=== PATIENT | male | born 1985 | race Caucasian/White ===

== ENCOUNTER 2018-07-04 18:02 | Emergency (ER) | payer SELFPAY ==
[2018-07-04 19:38] LABS: Protime INR 0.97
[2018-07-04 20:07] LABS: ALT/SGPT 82 U/L (12-78); AST/SGOT 31 U/L (15-37); Albumin 3.9 g/dL (3.4-5.0); Alkaline Phosphatase 74 U/L (45-117); BUN Blood Urea Nitrogen 6 mg/dL (7-18); Bicarbonate 24 mmol/L (21-32); Bilirubin Direct < 0.1 mg/dL (0-0.2); Bilirubin Total 0.3 mg/dL (0.2-1.0); Glucose Level 94 mg/dL (74-106); Potassium 3.8 mmol/L (3.5-5.1); Protein, Total 7.7 g/dL (6.4-8.2); Sodium Level 138 mmol/L (136-145)
[2018-07-04 20:22] LABS: Absolute Monocytes 0.5 K/uL (0.1-1.3); Absolute Neutrophil 4.2 K/uL (1.8-8.0); Basophils % 1.2 % (0-1.3); Eosinophils % 2.6 % (0-4.4); Hematocrit 49.7 % (39.6-49.0); Lymphocytes % 37.2 % (15.3-44.8); MCH 32.2 pg (27.0-35.0); MCV 92.3 fL (80-100); MPV 8.9 fL (7.6-11.3); Monocytes % 6.7 % (3.3-12.3); RBC Red Blood Cell Count 5.39 M/uL (4.33-5.43)
[2018-07-04 21:07] LABS: Barbiturates NEGATIVE (NEGATIVE); Benzodiazepines NEGATIVE (NEGATIVE); Cocaine NEGATIVE (NEGATIVE); METHAMPHETAM NEGATIVE (NEGATIVE); Methadone NEGATIVE (NEGATIVE); Opiates NEGATIVE (NEGATIVE); Phencyclidine NEGATIVE (NEGATIVE); THC Cannibis NEGATIVE (NEGATIVE)
[2018-07-04] MEDS ORDERED: NA CHLORIDE 0.9% 1,000 ML ONE ×2 (21:32→22:16)
--- NOTE | 2018-07-05 00:14 | ER ---
Nurse's Notes [facility] Name: Naima Catalan Age: 32 yrs Sex: Male : 1985 Arrival Date: 07/04/2018 Time: 18:06 Bed 27 Private MD: Diagnosis: Adjustment disorder with depressed mood Presentation: 07/04 18:12 Presenting complaint: Patient states: from his of 9 years a couple days iw ago, last night she sent him a picture of someone else's penis, pt started drinking this morning when he got off work at 8 am, has had a total of 17 beers, sent a text to his friend who is a police stenographer that stated "I feel like I wanna shoot myself". Pt denies previous hx of suicidal ideation, states he just feels very depressed, especially after drinking, denies any attempt at suicide. Transition of care: patient was not received from another setting of care. Onset of symptoms was July 04, 2018. Risk Assessment: Do you want to hurt yourself or someone else? Patient reports no desire to harm self or others. Initial Sepsis Screen: Does the patient meet any 2 criteria? No. Patient's initial sepsis screen is negative. Does the patient have a suspected source of infection? No. Patient's initial sepsis screen is negative. Care prior to arrival: None. 18:12 Method Of Arrival: EMS: [facility] 18:12 Acuity: LEN 2 iw Historical: - Allergies: 18:19 NKA; iw - Home Meds: 18:19 None [Active]; iw - PMHx: 18:19 None; iw - PSHx: 18:19 fusion C4-C5; iw - Immunization history:: Adult Immunizations up to date. - Social history:: Smoking status: Patient uses tobacco products, smokes one pack cigarettes per day. Patient uses alcohol, on a daily basis. claims drinking about a 6 pack/day. - Ebola Screening: : Patient negative for fever greater than or equal to 101.5 degrees Fahrenheit, and additional compatible Ebola Virus Disease symptoms Patient denies exposure to infectious person Patient denies travel to an Ebola-affected area in the 21 days before illness onset No symptoms or risks identified at this time. Screenin:47 Abuse screen: Denies threats or abuse. Nutritional screening: No deficits noted. tl3 Tuberculosis screening: No symptoms or risk factors identified. Fall Risk None identified. Assessment: 18:20 General: Appears comfortable, well groomed, well developed, well nourished, Behavior is tl3 calm, cooperative, appropriate for age, Smells of alcohol. Pain: Denies pain. Neuro: Level of Consciousness is awake, alert, obeys commands, Oriented to person, place, time, situation, Appropriate for age. Neuro: Reports depression, marital problems. Cardiovascular: Patient's skin is warm and dry. Respiratory: Airway is patent Respiratory effort is even, unlabored, Respiratory pattern is regular, symmetrical, Breath sounds are clear bilaterally. GI: No signs and/or symptoms were reported involving the gastrointestinal system. : No signs and/or symptoms were reported regarding the genitourinary system. EENT: No signs and/or symptoms were reported regarding the EENT system. Derm: No signs and/or symptoms reported regarding the dermatologic system. Musculoskeletal: No signs and/or symptoms reported regarding the musculoskeletal system. 22:13 Reassessment: No changes from previously documented assessment. Patient and/or family tl3 updated on plan of care and expected duration. Pain level reassessed. Patient is alert, oriented x 3, equal unlabored respirations, skin warm/dry/pink. pt tolerating fluids well. 07/05 00:17 Reassessment: Patient appears in no apparent distress at this time. No changes from tl3 previously documented assessment. Patient and/or family updated on plan of care and expected duration. Pain level reassessed. Patient is alert, oriented x 3, equal unlabored respirations, skin warm/dry/pink. [facility] has evaluated patient and provided him with resources for outpatient care. Psych: 07/04 18:20 Subjective: Patient's mood is sad, Delusions are denied, Hallucinations are denied. iw Objective: Patient is cooperative, Speech is normal, Affect is appropriate. 07/05 00:15 Interventions: Urine collected and sent for urine drug test. Suicide Risk Assessment: tl3 Sad Person Scale: Sex of patient: Male: Score 1 point. Age of patient: Score 1 point if patient 15-34. Depression: Score 1 point if signs of depression are present. Previous Attempt: Score 0 point if patient has not previously attempted suicide. Substance Abuse: Score 1 point if patient abuses alcohol or drugs. Rational Thinking: Score 0 point if patient has rational thinking. Social Support: Score 0 if social support is present/available. Organized Plan: Score 0 if patient did not have an organized plan in place. Relationship: Score 1 point if patient is , , , or for a single male TOTAL POINTS: If total points are 3-4, proposed clinical action is close follow-up/consider hospitalization. Safety Checks: Patient uses. Commitment:. Vital Signs: 07/04 18:19 BP 157 / 115; Pulse 96; Resp 16 S; Temp 98.2; Pulse Ox 99% on R/A; Weight 108.86 kg; iw Height 6 ft. (182.88 cm); Pain 0/10; 20:47 BP 149 / 110; Pulse 92; Resp 18; Pulse Ox 99% on R/A; tl3 23:14 BP 143 / 98; Pulse 86; Resp 18; Pulse Ox 94% on R/A; tl3 07/05 00:25 BP 143 / 98; Pulse 85; Resp 18; Pulse Ox 95% on R/A; tl3 07/04 18:19 Body Mass Index 32.55 (108.86 kg, 182.88 cm) iw ED Course: 07/04 18:06 Patient arrived in ED. tl3 18:11 Catalina Terrell, LETICIA is Primary Nurse. tl3 18:12 Alba Yoo FNP-C is PHCP. snw 18:12 Adrian Edmonds MD is Attending Physician. snw 18:18 Triage completed. iw 18:19 Arm band placed on. iw 20:47 Patient has correct armband on for positive identification. Bed in low position. Call tl3 light in reach. Side rails up X 1. 20:47 No provider procedures requiring assistance completed. Initial lab(s) drawn, by me, tl3 sent to lab. Urine collected: clean catch specimen, clear. 23:02 Lab(s) recollected, by me, sent to lab. tl3 23:15 Spoke with [facility] and arranged for a screener to come assess patient once second cc etoh level is resulted. 07/05 00:26 IV discontinued, intact, bleeding controlled, No redness/swelling at site. Pressure tl3 dressing applied. Administered Medications: 07/04 21:30 Drug: NS 0.9% 1000 ml Route: IV; Rate: 1 bolus; Site: right antecubital; Delivery: tl3 Primary tubing; 07/05 00:02 Follow up: IV Status: Completed infusion; IV Intake: 1000ml tl3 07/04 22:12 Drug: NS 0.9% 1000 ml Route: IV; Rate: 1 bolus; Site: right antecubital; mg2 07/05 00:02 Follow up: IV Status: Completed infusion; IV Intake: 1000ml tl3 Intake: 00:02 IV: 1000ml; Total: 1000ml. tl3 00:02 IV: 1000ml; Total: 2000ml. tl3 Outcome: 00:13 Discharge ordered by MD. restrepo 00:26 Discharged to home ambulatory. tl3 00:26 Condition: improved 00:26 Discharge instructions given to patient, Instructed on discharge instructions, follow up and referral plans. Demonstrated understanding of instructions, follow-up care. 00:27 Patient left the ED. tl3 Signatures: Alba Yoo, WIND TURBINE MACHINIST-C WIND TURBINE MACHINIST-Csnw Nola Naidu, LETICIA RN Jossie Gramajo Tammy, RN RN tl3 Avelino Romero RN RN mg2
--- NOTE | 2018-07-05 00:14 | EDPHYS ---
Physician Documentation [facility] Name: Naima Catalan Age: 32 yrs Sex: Male : 1985 Arrival Date: 07/04/2018 Time: 18:06 Bed 27 Private MD: ED Physician Adrian Edmonds HPI: 07/04 19:21 This 32 yrs old Male presents to ER via EMS with complaints of Suicidal snw Ideation. 19:21 The patient presents to the emergency department with depression, over a relationship, snw pt denies SI, HI. States in frustration he text his friend (a commissioned police officer) and stated that he just felt like shooting himself in the head. Onset: The symptoms/episode began/occurred gradually, and became worse today. Past psychiatric history: Prior diagnosis: depression, Psychiatric medications include: none, Primary psychiatric physician: the patient does not have a primary psychiatric physician, the patient has not had a prior suicide gesture, the patient does not have a previous inpatient psychiatric history, the patient's last psychiatric treatment was none. Associated signs and symptoms: Pertinent positives; + intoxication. Severity of symptoms: At their worst the symptoms were moderate in the emergency department the symptoms have improved moderately. The patient has not experienced similar symptoms in the past. It is unknown whether or not the patient has recently seen a physician. Pt has 4 children with significant other. Pt is having relationship problem with her. States he is usually on a roller coaster with ups and downs but is very down at this time. Speaking with G-mother who lives in [place] and is very supportive when I entered his room. Pt denies suicidal/homicidal ideation. No treatment or counseling for depression in the past. Historical: - Allergies: 18:19 NKA; iw - Home Meds: 18:19 None [Active]; iw - PMHx: 18:19 None; iw - PSHx: 18:19 fusion C4-C5; iw - Immunization history:: Adult Immunizations up to date. - Social history:: Smoking status: Patient uses tobacco products, smokes one pack cigarettes per day. Patient uses alcohol, on a daily basis. claims drinking about a 6 pack/day. - Ebola Screening: : Patient negative for fever greater than or equal to 101.5 degrees Fahrenheit, and additional compatible Ebola Virus Disease symptoms Patient denies exposure to infectious person Patient denies travel to an Ebola-affected area in the 21 days before illness onset No symptoms or risks identified at this time. ROS: 19:25 Constitutional: Negative for fever, chills, and weight loss, Eyes: Negative for injury, snw pain, redness, and discharge, ENT: Negative for injury, pain, and discharge, Neck: Negative for injury, pain, and swelling, Cardiovascular: Negative for chest pain, palpitations, and edema, Respiratory: Negative for shortness of breath, cough, wheezing, and pleuritic chest pain, Abdomen/GI: Negative for abdominal pain, nausea, vomiting, diarrhea, and constipation, Back: Negative for injury and pain, : Negative for injury, bleeding, discharge, and swelling, MS/Extremity: Negative for injury and deformity, Skin: Negative for injury, rash, and discoloration, Neuro: Negative for headache, weakness, numbness, tingling, and seizure. 19:25 Psych: Positive for depression, intoxication. Exam: 19:25 Constitutional: This is a well developed, well nourished patient who is awake, alert, snw and in no acute distress. +ETOH Head/Face: Normocephalic, atraumatic. Eyes: Pupils equal round and reactive to light, extra-ocular motions intact. Lids and lashes normal. Conjunctiva and sclera are non-icteric and not injected. Cornea within normal limits. Periorbital areas with no swelling, redness, or edema. ENT: Nares patent. No nasal discharge, no septal abnormalities noted. Tympanic membranes are normal and external auditory canals are clear. Oropharynx with no redness, swelling, or masses, exudates, or evidence of obstruction, uvula midline. Mucous membranes moist. Neck: Trachea midline, no thyromegaly or masses palpated, and no cervical lymphadenopathy. Supple, full range of motion without nuchal rigidity, or vertebral point tenderness. No Meningismus. Chest/axilla: Normal chest wall appearance and motion. Nontender with no deformity. No lesions are appreciated. Cardiovascular: Regular rate and rhythm with a normal S1 and S2. No gallops, murmurs, or rubs. Normal PMI, no JVD. No pulse deficits. Respiratory: Lungs have equal breath sounds bilaterally, clear to auscultation and percussion. No rales, rhonchi or wheezes noted. No increased work of breathing, no retractions or nasal flaring. Abdomen/GI: Soft, non-tender, with normal bowel sounds. No distension or tympany. No guarding or rebound. No evidence of tenderness throughout. Back: No spinal tenderness. No costovertebral tenderness. Full range of motion. Skin: Warm, dry with normal turgor. Normal color with no rashes, no lesions, and no evidence of cellulitis. MS/ Extremity: Pulses equal, no cyanosis. Neurovascular intact. Full, normal range of motion. Neuro: Awake and alert, GCS 15, oriented to person, place, time, and situation. Cranial nerves II-XII grossly intact. Motor strength 5/5 in all extremities. Sensory grossly intact. Cerebellar exam normal. Normal gait. 19:25 Psych: Behavior/mood is depressed, Affect is calm, Oriented to person, place, time, denies, Judgement / Insight is normal. Memory is normal. Vital Signs: 18:19 BP 157 / 115; Pulse 96; Resp 16 S; Temp 98.2; Pulse Ox 99% on R/A; Weight 108.86 kg; iw Height 6 ft. (182.88 cm); Pain 0/10; 20:47 BP 149 / 110; Pulse 92; Resp 18; Pulse Ox 99% on R/A; tl3 23:14 BP 143 / 98; Pulse 86; Resp 18; Pulse Ox 94% on R/A; tl3 07/05 00:25 BP 143 / 98; Pulse 85; Resp 18; Pulse Ox 95% on R/A; tl3 07/04 18:19 Body Mass Index 32.55 (108.86 kg, 182.88 cm) iw MDM: 07/04 18:16 Patient medically screened. snw 23:58 Data reviewed: vital signs, nurses notes. Data interpreted: Pulse oximetry: on room air snw is 94 %. Interpretation: acceptable. Counseling: I had a detailed discussion with the patient and/or guardian regarding: the historical points, exam findings, and any diagnostic results supporting the discharge/admit diagnosis, the presence of at least one elevated blood pressure reading (>120/80) during this emergency department visit, lab results. Other consultation: [facility] here for evaluation. 07/04 18:12 Order name: Acetaminophen; Complete Time: 20:35 snw 07/04 18:12 Order name: Basic Metabolic Panel; Complete Time: 20:35 [facility] 07/04 18:12 Order name: CBC with Diff; Complete Time: 20:35 [facility] 07/04 18:12 Order name: ETOH Level; Complete Time: 20:13 [facility] 07/04 18:12 Order name: Hepatic Function; Complete Time: 20:35 w 07/04 18:12 Order name: PT-INR; Complete Time: 20:13 [facility] 07/04 18:12 Order name: Ptt, Activated; Complete Time: 20:13 [facility] 07/04 18:12 Order name: Salicylate; Complete Time: 20:13 w 07/04 18:12 Order name: Urine Drug Screen; Complete Time: 21:20 [facility] 07/04 18:12 Order name: EKG; Complete Time: 18:13 [facility] 07/04 22:13 Order name: ETOH Level: after the second bolus; Complete Time: 23:55 [facility] 07/04 18:12 Order name: EKG - Nurse/Tech; Complete Time: 21:44 [facility] 07/04 18:12 Order name: IV Saline Lock; Complete Time: 21:44 [facility] 07/04 18:12 Order name: Labs collected and sent; Complete Time: 20:19 [facility] 07/04 18:12 Order name: Urine Dipstick-Ancillary (obtain specimen); Complete Time: 21:44 [facility] 07/04 20:36 Order name: consult Order-[facility] Administered Medications: 21:30 Drug: NS 0.9% 1000 ml Route: IV; Rate: 1 bolus; Site: right antecubital; Delivery: tl3 Primary tubing; 07/05 00:02 Follow up: IV Status: Completed infusion; IV Intake: 1000ml tl3 07/04 22:12 Drug: NS 0.9% 1000 ml Route: IV; Rate: 1 bolus; Site: right antecubital; mg2 07/05 00:02 Follow up: IV Status: Completed infusion; IV Intake: 1000ml tl3 Disposition: 12:19 Co-signature as Attending Physician, Adrian Edmonds MD. Disposition: 07/05/18 00:13 Discharged to Home. Impression: Adjustment disorder with depressed mood. - Condition is Stable. - Discharge Instructions: Adjustment Disorder, Adult, Complicated Grieving. - Medication Reconciliation Form, Thank You Letter, Antibiotic Education, Prescription Opioid Use form. - Follow up: Emergency Department; When: As needed; Reason: Worsening of condition. Follow up: Private Physician; When: 5 - 6 days; Reason: Recheck today's complaints, Continuance of care, Re-evaluation by your physician. - Notes: [facility] , Signatures: Dispatcher [employer] [facility] Alba Yoo, PULP AND PAPER TESTER-C PULP AND PAPER TESTER-Csnw Nola Naidu, RN RN iw Adrian Edmonds MD MD gs Catalina Terrell RN RN tl3 Avelino Romero, LETICIA RN mg2 Corrections: (The following items were deleted from the chart) 07/04 22:14 22:13 ETHANOL+C.LAB.BRZ ordered. [facility] 07/05 00:27 00:13 07/05/2018 00:13 Discharged to Home. Impression: Adjustment disorder with tl3 depressed mood. Condition is Stable. Forms are Medication Reconciliation Form, Thank You Letter, Antibiotic Education, Prescription Opioid Use. Follow up: Emergency Department; When: As needed; Reason: Worsening of condition. Follow up: Private Physician; When: 5 - 6 days; Reason: Recheck today's complaints, Continuance of care, Re-evaluation by your physician. snw
--- NOTE | 2018-07-05 09:25 | EKG ---
Test Date: 2018-07-04 Test Time: 20:37:58 Brick Catcher: TL MEASUREMENT RESULTS: Intervals: Rate: 98 MA: 120 QRSD: 98 QT: 332 QTc: 423 [place]: P: 32 MA: 120 QRS: 29 T: 35 INTERPRETIVE STATEMENTS: Normal sinus rhythm Normal ECG No previous ECG available for comparison Electronically Signed On 07-05-18 09:24:00 CDT by Josh Fraga
--- NOTE | 2018-07-05 09:25 | EKG ---
Test Date: 2018-07-04 Test Time: 20:57:23 Network Associate: TL MEASUREMENT RESULTS: Intervals: Rate: 68 MD: 182 QRSD: 94 QT: 412 QTc: 438 [place]: P: 59 MD: 182 QRS: -10 T: 53 INTERPRETIVE STATEMENTS: Normal sinus rhythm Normal ECG Compared to ECG 07/04/2018 20:37:58 No significant changes Electronically Signed On 07-05-18 09:23:59 CDT by Josh Fraga
== END 2018-07-05 00:27 | disposition home or self-care (01) ==
LOC: ER 18:02
DX: F43.21 Adjustment disorder with depressed mood (principal); F17.210 Nicotine dependence, cigarettes, uncomplicated
CPT/HCPCS: 36415; 80048; 80076; 80307; 80320; 80329; 85025; 85610; 85730; 93005; 96360; 96361; 99284; J7030